=== PATIENT | male | born 1960 | race Asian ===

== ENCOUNTER → 2023-07-15 08:21 | Outpatient (REF) | payer OTHER, SELFPAY ==
[2023-07-15 09:19] LABS: Urine Albumin Negative (Neg - Trace); Urine Bilirubin Negative (Negative); Urine Character Clear (Clear); Urine Color Yellow; Urine Glucose Negative (Negative); Urine Ketone Negative (Negative); Urine Leukocyte Negative (Negative); Urine Nitrite Negative (Negative); Urine Occult Blood Negative (Negative); Urine Specific Gravity 1.015 (<1.030); Urine Urobilinogen Negative (Neg - 1+)
[2023-07-15 09:30] LABS: % Basophils 0.8 % (0-2); % Eosinophils 2.1 % (0-6); % Immature Granulocytes 0.2 % (0-0.5); % Lymphocytes 29.6 % (20.5-51.1); % Monocytes 7.1 % (1.7-9.3); % Neutrophils 60.2 % (42.2-75.2); Absolute Eosinophils 0.1 10^3/uL (0-0.7); Absolute Lymphocytes 1.5 10^3/uL (1.2-3.4); Absolute Monocytes 0.4 10^3/uL (0.1-0.6); Absolute Neutrophils 3.1 10^3/uL (1.4-6.5); Hematocrit 44.8 % (39.0-52.0); Hemoglobin 14.7 g/dL (13.0-18.0); Mean Corp Hgb Conc. 32.8 g/dL (33.0-37.0); Mean Corpuscular Hgb 30.1 pg (27.0-31.0); Mean Corpuscular Volume 91.8 fL (80.0-94.0); Nucleated Red Blood Cells % 0 % (-); Platelet Count 179 10^3/uL (130-400); Red Blood Cell Count 4.88 10^6/uL (4.70-6.10); Red Cell Dist. Width 12.4 % (11.5-14.5); White Blood Cell Count 5.2 10^3/uL (4.8-10.8)
[2023-07-15 09:55] LABS: ALT (SGPT) 36 U/L (0-50); AST (SGOT) 33 U/L (17-59); Albumin 4.3 g/dl (3.5-5.0); Alkaline Phosphatase 59 U/L (38-126); Blood Urea Nitrogen 17 mg/dl (9-20); Calcium 8.7 mg/dl (8.4-10.2); Carbon Dioxide 27 mmol/L (22-30); Chloride 106 mmol/L (98-107); Glucose 95 mg/dl (70-99); HDL Cholesterol 43 mg/dl; LDL Cholesterol, Calculated 53 mg/dl; Sodium 138 mmol/L (135-145); Total Bilirubin 0.8 mg/dl (0.2-1.3); Total Cholesterol 118 mg/dl (50-199); Total Protein 6.6 g/dl (6.3-8.2); Triglyceride 112 mg/dl (10-149); Very Low Density Lipoprotein 22 mg/dl (0-30); eGFR > 60.00
[2023-07-15 10:21] LABS: PSA, Total - Screen 1.18 ng/ml (0.0-4.0)
== END ==
LOC: REG 08:21
PROVIDERS: ATTENDING PHYSICIAN Family Medicine
DX: Z00.00 Encounter for general adult medical examination without abnormal findings (principal); E78.5 Hyperlipidemia, unspecified; N40.1 Benign prostatic hyperplasia with lower urinary tract symptoms
CPT/HCPCS: 36415; 80053; 80061; 81003; 84443; 85025; G0103

== ENCOUNTER 2023-10-03 12:47 | Inpatient (IN) | payer OTHER, SELFPAY ==
[2023-10-03] VITALS (8 sets, daily range): BP systolic 111–124; BP diastolic 69–80; BMI 26.1
--- NOTE | 2023-10-03 09:05 | ED.CVA ---
History of Present Illness
General
Chief Complaint: CVA/TIA Symptoms
Source: patient
Exam Limitations: none
Time Seen by Provider: 10/03/23 09:02
Onset of Stroke Symptoms
Onset of symptoms known: Yes
Date of onset of symptoms: 10/03/23
Date last time pt seen normal: 10/03/23
Travel History
Have you had any contact with someone who has COVID-19?: No
Do you have any symptoms of coronavirus? Fever > 100 degrees, chills, cough, shortness of breath, sore throat, loss of taste or smell, muscle aches, or headache?: No
History of Present Illness
History of Present Illness:
See MDM
Past History
Past History
ED Past Medical History: Arrthythmia, CAD, GERD and HTN
ED Past Surgical History: Cardiac and Other (Hernia repair)
Social History
Tobacco: Non-smoker
Alcohol: None
Drug: None
Personal:
Living: with family
Phy Exam
Physical Exam
Physical Exam:
See MDM
Scores
NIH Stroke Score
Level of Consciousness: 0 - Alert
LOC Questions: 0-Answers both correctly
LOC Commands: 0-Performs both correctly
Best Horizontal Gaze: 0-Normal
Visual Portillo: 1=Partial hemianopia
Facial Palsy: 0=Normal, symmetrical
Motor - Right Arm: 0=No drift 10 seconds
Motor - Left Arm: 0=No drift 10 seconds
Motor - Right Le-No drift 5 seconds
Motor - Left Le-No drift 5 seconds
Limb Ataxia: 0-Absent
Sensation: 0-Normal
Best Language: 0-No aphasia
Dysarthria: 0-Normal
Extinction and Inattention: 0-No abnormality
Total Score:: 1
Course
Orders/Labs/Results
Orders:
Orders
10/03/23 08:59
CT Head W/o Cont STROKE ALERT Urgent
Comment:
Reason For Exam: left vision loss
10/03/23 09:00
CT Head/Neck Ang STROKE ALERT Urgent
Comment:
Reason For Exam: left vision loss
10/03/23 09:03
Electrocardiogram (*1) Stat
Reason for Study: Other
Other Reason for Exam: neuro symptoms
NEUROLOGY CONSULT Urgent
Consulting Provider: Irvin Metz
Was physician already notified: Yes
EKG- Treatment ONCE
10/03/23 09:10
Complete Blood Count/With Diff Urgent
Comprehensive Metabolic Panel Urgent
PTT Urgent
Prothrombin Time Urgent
Troponin I Urgent
10/03/23 09:18
Aspirin Chewable [Low Strength Aspirin] 324 mg PO NOW STA
Clopidogrel Bisulfate [Plavix] 300 mg PO NOW STA
Abnormal Lab Results
10/03/23
09:10
MPV 10.6 H fL
(7.4-10.4)
Absolute Lymphs (auto) 1.1 L 10^3/uL
(1.2-3.4)
10/03/23 09:10
10/03/23 09:10
Vital Signs
Initial and Last Documented VS:
Initial Vital Signs
Pulse Resp BP Pulse Ox
70 16 124/75 98
10/03/23 08:53 10/03/23 08:53 10/03/23 08:53 10/03/23 08:53
Last Documented Vital Signs
Pulse Resp BP Pulse Ox
70 16 124/75 98
10/03/23 08:53 10/03/23 08:53 10/03/23 08:53 10/03/23 08:53
MDM/Problems Addressed
Differential Diagnosis Includes:
HPI and MDM Narrative:
63-year-old male presenting for evaluation of visual issues. Patient woke up around 6:50 AM. Around 7:04 AM he noticed that he was having vision issues in his left eye. Soon afterwards, he realized that it was both eyes. He denies any headache.
Patient denies being on blood thinners. He does have a history of coronary artery disease with stents and CABG. He has a prior history of smoking. He denies prior strokes. Stroke alert was called from triage and patient was brought back
immediately and met by myself and neurology.
Patient states he recently stopped Plavix 5 to 6 months ago which was a year after his last stent.
On exam, patient has left contralateral superior quadrantanopia
Physical exam
General: Well appearing and non-toxic
HEENT: protecting airway. Pupils equal reactive. EOMI. Left contralateral superior quadrantanopia
Neck: appears supple
CV: No evidence of cyanosis. Regular rate and rhythm
Resp: No accessory muscle use
Abd: Non-distended
Extremities: No deformities
Neuro: alert. No focal neurodeficits in regards to facial paralysis, speech issues, muscle strength or sensory loss. Visual deficit noted
Psych: Normal affect
Skin: Intact
Problems Addressed including Acute and Chronic Conditions affecting care:
1. left contralateral superior quadrantanopia
Acuity: acute
Prognosis: unstable
Details: Given the timing, patient is a TNK candidate. Stroke alert was called from triage. Will obtain CT angiogram
Updates
9:[address] is already showing evidence of stroke. Because of this, patient is not a TNK candidate. Will give aspirin and Plavix. at bedside also indicates that she was not 100% on the timing that was provided by the patient
Differential Diagnosis (but not limited to): Ischemic stroke, hemorrhage, complex migraine
Testing considered: MRI
Drug therapy (if applicable): OTC meds, please see d/c instruction regarding Rx drugs
Amount and/or Complexity of Data Reviewed
Clinical info obtained from: Patient
External data reviewed: N/A
Labs I independently reviewed (but not limited to): Electrolytes within normal limits
Radiology: The CT scan was personally and independently reviewed. In addition, official CT report reviewed.
Pulse Ox: not hypoxic
EKG independently reviewed: Sinus rhythm, inferior Q waves, no STEMI
Braid Folder: Sinus rhythm
Critical Care: N/A
Risk of Complication:
Social Determinants of health: Good social support
Discussed with other providers: Hospitalist, neurologist
Escalation of Care includes Admit/Obs: Given the subacute stroke, will admit for further workup
Occasional wrong word or 'sound a like' substitutions may have occurred due to the inherent limitations of voice recognition software. Read the chart carefully and recognize, using context, where substitutions have occurred.
*Critical Care Note
Total Time (30-74mins, 75-104mins- exclusive of procedures): Not Applicable
ED Attending Note
-
Portions of this chart may have been created with voice recognition software.� Occasional wrong word or��sound alike� substitutions may have occurred due to the inherent limitations of voice recognition software.
Discharge Plan
Departure
Patient Disposition: Admit
Date of Disposition: 10/03/23
Time of Disposition: 09:46
Admit to: Med/Surg
Presentation/result/management discussed w/ accepting /: Hospitalist
Discharge Problem:
Acute CVA (cerebrovascular accident)
Prescriptions:
No Action
atorvastatin [Lipitor] 10 mg Tablet
10 mg PO DAILY
aspirin 81 mg Tablet,Delayed Release (Dr/Ec)
81 mg PO DAILY
losartan 25 mg Tablet
25 mg PO DAILY
metoprolol succinate [Toprol XL] 25 mg Tablet Extended Release 24 Hr
12.5 mg PO QPM
coenzyme Q10 [CoQ-10] 100 mg Capsule
100 mg PO DAILY
Referrals:
Jose Tompkins DO [Family Provider] -
Interventions
Interventions:
ED- Fall Risk Assessment Last Done: 10/03/23 09:30
*ED COVID-19 Vaccine History Last Done: 10/03/23 08:53
ED- Pulmonary Assessment Last Done: 10/03/23 09:30
ED- Neurological Assessment Last Done: 10/03/23 09:09
ED- Cardiac Assessment Last Done: 10/03/23 09:30
ED Swallowing Screen Last Done: 10/03/23 09:30
Discharge Date and Time
Print Language: LAO
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
[2023-10-03 09:20] LABS: % Basophils 0.6 % (0-2); % Eosinophils 1.5 % (0-6); % Immature Granulocytes 0.4 % (0-0.5); % Lymphocytes 20.6 % (20.5-51.1); % Monocytes 7.5 % (1.7-9.3); % Neutrophils 69.4 % (42.2-75.2); Absolute Eosinophils 0.1 10^3/uL (0-0.7); Absolute Lymphocytes 1.1 10^3/uL (1.2-3.4); Absolute Monocytes 0.4 10^3/uL (0.1-0.6); Absolute Neutrophils 3.6 10^3/uL (1.4-6.5); Hematocrit 46.1 % (39.0-52.0); Hemoglobin 15.4 g/dL (13.0-18.0); Mean Corp Hgb Conc. 33.4 g/dL (33.0-37.0); Mean Corpuscular Hgb 30.8 pg (27.0-31.0); Mean Corpuscular Volume 92.2 fL (80.0-94.0); Mean Platelet Volume 10.6 fL (7.4-10.4); Nucleated Red Blood Cells % 0 % (-); Platelet Count 173 10^3/uL (130-400); Red Cell Dist. Width 12.6 % (11.5-14.5); White Blood Cell Count 5.2 10^3/uL (4.8-10.8)
[2023-10-03] MEDS: LOW STRENGTH ASPIRIN 324 MG PO (09:36)
[2023-10-03] MEDS: PLAVIX 300 MG PO (09:36)
[2023-10-03 09:38] LABS: APTT 32.6 Sec (23.4-35.0); PT 13.2 Sec (11.4-14.6)
[2023-10-03 09:41] LABS: ALT (SGPT) 33 U/L (0-50); AST (SGOT) 32 U/L (17-59); Albumin 4.7 g/dl (3.5-5.0); Alkaline Phosphatase 66 U/L (38-126); Blood Urea Nitrogen 15 mg/dl (9-20); Calcium 9.2 mg/dl (8.4-10.2); Carbon Dioxide 28 mmol/L (22-30); Chloride 104 mmol/L (98-107); Glucose 94 mg/dl (70-99); Sodium 140 mmol/L (135-145); Total Bilirubin 0.7 mg/dl (0.2-1.3); Total Protein 7.1 g/dl (6.3-8.2); eGFR > 60.00
[2023-10-03 10:00] LABS: Troponin I < 0.012 ng/ml
[2023-10-03 10:58] LABS: HDL Cholesterol 49 mg/dl; LDL Cholesterol, Calculated 64 mg/dl; Total Cholesterol 142 mg/dl (50-199); Triglyceride 149 mg/dl (10-149); Very Low Density Lipoprotein 29 mg/dl (0-30)
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
--- NOTE | 2023-10-03 12:36 | CON.CAR ---
Addendum entered and electronically signed by Sd Sheehan MD 10/03/23 15:05:
Patient seen and examined in collaboration with SILK BRUSHER; agree with below.
-63-year-old male with coronary artery disease status-post CABG (2018) with brief postoperative paroxysmal atrial fibrillation, subsequent coronary stenting (03/2022), chronic HFmrEF/ICM (initial EF 35%, improved to 45%), and hyperlipidemia admitted
with abnormal vision; found to have a right occipital lobe infarct.
-There is a relatively high likelihood that the patient had recurrent paroxysmal atrial fibrillation as a cause for his infarct; therefore, recommend placing patient on systemic anticoagulation (Eliquis 5 mg twice daily) when cleared by Neurology.
-The patient's transthoracic echocardiogram today is essentially unchanged compared to previous last year.
-No further cardiac recommendations at this time; the patient can follow-up with his primary Expert Witness as an outpatient to determine whether patient really needs to undergo an ILR to officially prove that atrial fibrillation has recurred.
Original Note:
Consultation
Consultation Request
Date/Time Consultation Requested: 10/03/23 1208
Date/Time Consultation Performed: 10/03/23 1245
Requesting Provider: Dr. Pascal
Performing Provider: Diana BLOOM for Dr. Sheehan
Reason for Consultation: Stroke
Medical History
-
Chief Complaint: visual abnormalities
History of Present Illness:
63 y/o male with CAD s/p CABG with brief post-op AFIB (2019), ICM EF 35%, but improved to 45%), followed by coronary stenting 03/2022, and HLD who is here because this AM he noted his vision was abnormal. He is seen to have right occipital lobe
infarct. We are consulted to consider implantable loop recorder placement. He is a former Dr. Trevino patient, and will see Dr. Hawley next month.
Past Medical History
Past Medical History: Arrhythmias, CAD, Hypercholesterolemia and Other (ICM as noted)
Social History
Tobacco: Non-Smoker
Family History
Family History: Reviewed & Not Pertinent
Allergies / Home Medications
Allergy/AdvReac Type Severity Reaction Status Date / Time
tea tree Allergy Intermediate Hives Verified 04/03/22 12:12
black pepper Allergy Mild cough Verified 04/03/22 12:12
pollen extracts Allergy Mild SNEEZE,COUGH,TEARING,RUNNY Verified 04/03/22 12:12
NOSE
�Medication �Instructions �Recorded �Confirmed �Type
aspirin 81 mg tablet,delayed 81 mg PO DAILY 10/03/23 10/03/23 History
release
atorvastatin 10 mg tablet (Lipitor) 10 mg PO DAILY 10/03/23 10/03/23 History
coenzyme Q10 100 mg capsule 100 mg PO DAILY 10/03/23 10/03/23 History
(CoQ-10)
losartan 25 mg tablet 25 mg PO DAILY 10/03/23 10/03/23 History
metoprolol succinate 25 mg 12.5 mg PO QPM 10/03/23 10/03/23 History
tablet,extended release 24 hr
(Toprol XL)
Review of Systems
-
History Source: Patient
All other systems: Negative unless noted
Neurological: Other (vision changes)
Physical Exam
Vital Signs
Pulse Resp BP Pulse Ox
64 19 111/80 92
10/03/23 10:15 10/03/23 10:15 10/03/23 10:00 10/03/23 10:15
Lab Results
10/03/23 09:10
10/03/23 09:10
Troponin I < 0.012 ng/ml 10/03/23 09:10
Physical Exam
General: Well Developed, Well Nourished and No Apparent Distress
HEENT: Normocephalic and Anicteric
Respiratory: Clear and Non Labored Respirations
Cardiac: Regular Rhythm
Musculoskeletal: No Edema
Skin: Warm and Dry
Neuro: AO x 3
Psych: Calm
Impression / Plan
-
Right occipital lobe infarct:
-this diagnosis is threat to bodily function
-visual symptoms may be improving per patient
-neuro following
-on ASA, plavix, statin currently
-we were asked to evaluate for implantable loop recorder to assess for AFIB. However, patient had brief post-op AFIB after CABG 2018, so once okay with neuro, would transition to Eliquis 5 mg PO BID.
-echo pending
CAD s/p CABG 2018 and stenting 2021:
-stable without angina
-on ASA, statin, BB as OP
ICM:
-EF 45% on last check- echo to be updated here
-on BB/ARB- held for permissive HTN post stroke
-volume status stable
Data Reviewed
-
EKG: Tracing Personally Visualized and interpreted (NSR 61 BPM)
Radiology: Report Reviewed by me (head CT: Findings consistent with a moderate subacute right occipital lobe infarct.)
MRI: Report Reviewed by me (Large nonhemorrhagic acute/subacute medial right occipital lobe infarct.)
Medical Tests (Nuc Med, Echo etc): Report Reviewed by me (10/11/22: Mildly reduced left ventricular systolic function. Left ventricular ejection fraction is 45% by Pascal's method of discs. Mild inferior hypokinesis. Stage I diastolic dysfunction
suggestive of abnormal relaxation. Aortic sclerosis without stenosis.)
Labs: Labs Reviewed by me
[2023-10-03 13:14] LABS: Glycohemoglobin (HgbA1c) 5.4 % (4.0-5.6)
--- NOTE | 2023-10-03 15:03 | PTCARENOTE ---
pt admitted from ED AOx3 denies pain. LCTA B/L on RA, abd soft, NT cont b&B. skin CDI, +PP no edema
[2023-10-03] MEDS: TYLENOL 650 MG PO (19:41)
[2023-10-04] VITALS (8 sets, daily range): BP systolic 102–121; BP diastolic 66–78; PULSE 91–94; O2SAT 98; BMI 25.7
[2023-10-04] MEDS: TYLENOL 650 MG PO (03:25)
[2023-10-04 07:01] LABS: Hematocrit 45.7 % (39.0-52.0); Hemoglobin 15.5 g/dL (13.0-18.0); Mean Corp Hgb Conc. 33.9 g/dL (33.0-37.0); Mean Corpuscular Volume 91.4 fL (80.0-94.0); Mean Platelet Volume 10.8 fL (7.4-10.4); Platelet Count 189 10^3/uL (130-400); Red Cell Dist. Width 12.3 % (11.5-14.5); White Blood Cell Count 6.9 10^3/uL (4.8-10.8)
[2023-10-04 07:29] LABS: Blood Urea Nitrogen 12 mg/dl (9-20); Calcium 9.3 mg/dl (8.4-10.2); Carbon Dioxide 20 mmol/L (22-30); Chloride 107 mmol/L (98-107); Estimated Creatinine Clearance > 125 ml/min; Glucose 124 mg/dl (70-99); Potassium 3.9 mmol/L (3.5-5.1); Sodium 138 mmol/L (135-145); eGFR > 60.00
--- NOTE | 2023-10-04 08:01 | W.PN.NEURO.1 ---
Addendum entered and electronically signed by Irvin Metz MD 10/04/23 13:34:
I saw and evaluate the patient reviewed note by Mai Freed agree with the findings the following comments:
63-year-old male with a past medical history of coronary artery disease with CABG, coronary stent, hypertension, cardiomyopathy with decreased ejection fraction presenting the hospital with acute left-sided visual field vision change noted shortly
after awakening yesterday morning. CT head showed an already developed right occipital lobe infarction so he was not candidate for acute thrombolytic therapy and no LVO so not an IAT candidate.
He does have a headache but no nausea or vomiting no speech difficulty or unilateral weakness.
Neurologic examination is unchanged there is a visual field defect most prominently in the left superior quadrant of vision otherwise cranial nerves motor function coordination and mental status are normal.
MRI brain with the expected infarct in the right occipital lobe posterior cerebral artery territory.
Transthoracic echocardiogram unchanged from previous study there is left atrial dilation.
Patient had had brief postoperative atrial fibrillation in the past.
Assessment: Embolic stroke to the right occipital lobe producing left superior quadrant tropia, highly likely to be cardioembolic stroke given absence of significant large vessel atherosclerosis in the vertebral or basilar arteries on CTA of the
head and neck, along with left atrial dilation history of coronary artery disease and previous instance of postoperative atrial fibrillation.
Recommendations
-Patient understands should not drive if for the time being in my office will report to [facility], also should not operate heavy machinery including lawnmowers
-He will need outpatient ophthalmology follow-up for assessing formal visual portillo and following this over time
-Agree with starting anticoagulation given highly likely this is a cardioembolic stroke and patient would be best served by anticoagulation for further stroke protection in the future
-Start anticoagulation on 10/05 and stop clopidogrel at that time
-Goal normotension
-Neurologic checks and at stroke scales
-Reasonable to discuss the option of implanted groundwater monitoring technician as an outpatient, would not change medical decision making that I think the patient needs to be on long-term anticoagulation for cardioembolic stroke protection
-Neurology follow up outpatient 4-6 weeks
-Tyenol for next 2-3 days as main therapy for headache which is due to the stroke, headache very common with this type of stroke, no other new neurologic symptoms is reassuring
Original Note:
Documented by User: Mai Hoyos NP 10/04/23 12:21
Today's Communication / Plan
-
.
Neuro Assessment/Plan
Assessment
63-year-old male with a past medical history of coronary artery disease status post stent and CABG, hypertension, cardiomyopathy with decreased ejection fraction who presents to the hospital with acute onset of painless bilateral vision change that
he noticed shortly after awakening this morning. Patient felt normal last night with no unusual headache neurologic symptoms or vision changes. A couple of minutes after awakening just before 7:00 this morning patient noticed that he had abnormal
vision seem to be in the left hemifield in both eyes. No headache, speech difficulty unilateral weakness or paresthesia or loss of consciousness chest pain or dyspnea. He has no history of TIA or stroke or any similar visual events. He had
cardiac stent placed around March 2022 and had 1 year of DAPT and came off of clopidogrel around March 2023 he has been compliant with aspirin 81 mg daily.
-CT head noncontrast with acute right occipital lobe infarct
-CTA of the head and neck shows no significant carotid or vertebral artery or basilar artery stenosis no intracranial occlusions that I can appreciate of the right FACILITY REHAB DIRECTOR. CTA also showed possible mass in right upper lobe.
-MRI brain with a moderate size ischemic infarct of the occipital lobe and the posterior cerebral artery territory without hemorrhage.
-TTE 10/03/23: EF 45%. Mild left atrium dilation.
I. Acute right occipital ischemic stroke producing left-sided vision loss. Etiology concerning for cardioembolic source.
II. Possible RUL pulmonary mass vs parenchymal scarring vs pneumonia.
Plan
-Initiating OAC with Eliquis 5mg BID per Cardiology recommendation. Okay to initiate OAC on 10/06/23.
-Continue DAPT with aspirin 81mg and Plavix 75mg today and tomorrow, then discontinue both on 10/06/23 when OAC is initiated, unless otherwise directed by Cardiology due to cardiac stent.
-Prochlorperazine 5mg IV x1 now for headache. May continue this PRN headache and provide PO script on discharge if this is effective. Discussed with patient that he may have a headache for several weeks. If headache becomes severe or drastically
worsens he is to come to the ER immediately due to concern of intracranial hemorrhage.
-Continue Tylenol PRN headache.
-Goal normotension.
-Monitor on telemetry.
-LDL goal <70. LDL is 64. Okay to continue home atorvastatin 10mg daily as LDL is at goal.
-Goal normoglycemia, hbA1c is 5.4.
-NIHSS and neurological checks per unit guidelines.
-Provide patient/family with a stroke education packet.
-PT/OT evaluations.
-DVT prophylaxis.
-Follow-up RUL pulmonary mass per primary team.
-No driving. Patient will need outpatient evaluation by ophthalmology and eventual driving clearance from them as well as OT driving screening.
-Follow-up with Neurology as an outpatient, may see the GREETER or one of the physicians.
Subjective/Objective
Subjective Data
Date of Service: October 04, 2023
No acute events overnight. Patient reports ongoing LUQ vision deficit and posterior headache. Tylenol hasn't been improving his headache, he rates it a 5/10 currently. He denies any dizziness, speech/swallow difficulty, numbness, weakness, chest
pain, palpitations, and shortness of breath.
Objective Data
Vital Signs
Temp Pulse Resp BP Pulse Ox
98 F 71 19 111/72 94
10/04/23 06:55 10/04/23 06:55 10/04/23 06:55 10/04/23 06:55 10/04/23 06:55
Lab Results
10/04/23 05:52
10/04/23 05:52
PT 13.2 Sec (11.4-14.6) 10/03/23 09:10
INR 1.00 10/03/23 09:10
APTT 32.6 Sec (23.4-35.0) 10/03/23 09:10
Sodium 138 mmol/L (135-145) 10/04/23 05:52
Potassium 3.9 mmol/L (3.5-5.1) 10/04/23 05:52
BUN 12 mg/dl (9-20) 10/04/23 05:52
Glucose 124 mg/dl (70-99) H 10/04/23 05:52
Calcium 9.3 mg/dl (8.4-10.2) 10/04/23 05:52
LDL Cholesterol, Calc 64 mg/dl 10/03/23 09:10
Patient Allergies
tea tree Allergy (Intermediate, Verified 04/03/22 12:12)
Hives
black pepper Allergy (Mild, Verified 04/03/22 12:12)
cough
pollen extracts Allergy (Mild, Verified 04/03/22 12:12)
SNEEZE,COUGH,TEARING,RUNNY NOSE
LDL Level: <70, continue statin
Review of Systems
-
History Source: Patient
EENT: Decreased Vision; Negative Blurry Vision or Swallowing Difficulty
Respiratory: Negative Cough or Trouble Breathing
Cardiac: Negative Chest Pain or Palpitations
Abdomen/GI: Negative Nausea
Neuro: Headache; Negative Dizzy, Weakness, Numbness, Ataxia, Tremors or Speech Problem
Physical Exam
-
General: Well Developed, Well Nourished and No Apparent Distress
Eyes: No Ptosis and PERRLA
HEENT: Normocephalic and Atraumatic
Neck: Full Range of Motion
Respiratory: No Dyspnea
GI: Non-distended
Extremities: No Clubbing, No Cyanosis and No Edema
Psych: Unremarkable
Extended Neurological Exam
Mood & Affect: Mood Unremarkable and Affect Unremarkable
Attention Span & Concentration: Awake, Alert and Interactive
Memory: Unremarkable (AAOx3) and Able to Recall
Tremor: Hand Tremor Absent and Head Tremor Absent
Involuntary Movement: None
Speech: Quality Unremarkable, Quantity Unremarkable and Rate of Production Unremarkable
Cranial Nerve II: Left Eye: Pupillary Reactivity Unremarkable, Pupillary Size Unremarkable and Visual Portillo Reduced (LUQ field cut)
Cranial Nerve II: Right Eye: Pupillary Reactivity Unremarkable, Pupillary Size Unremarkable and Visual Portillo Reduced (LUQ field cut)
Cranial Nerves III, IV, : Extraocular Movement: Extraocular Movement Full in all Directions
Cranial Nerve V: Facial Sensation: Intact to Light Touch
Cranial Nerve VII: Facial Symmetry: Normal Facial Symmetry
Cranial Nerve VIII: Hearing: Unremarkable Hearing to Normal Conversational Volume
Cranial Nerves IX, X: Palate Movement: Palate Elevation Symmetric
Cranial Nerve XI: Shoulder Shrug: Unremarkable
Cranial Nerve XII: Tongue Protusion: Midline
Muscle Strength, Overall: Full Throughout
Muscle Bulk & Tone: Bulk Unremarkable and Tone Unremarkable
Pronator Drift: No Drift in Upper Extremities and No Drift in Lower Extremities
Touch Sensation: Double Simultaneous Stimulation Unremarkable
Coordination: [id number] Testing Unremarkable
Babinski Sign: Absent Bilaterally
Modified [place] Score (MRS)
-
Modified Gibson Scale (mRS): Slight disability. Able to look after own affairs.
Score: 2
Data Reviewed
-
CT-A: Report Reviewed and Image Reviewed
CT Head: Report Reviewed and Image Reviewed
MRI Head: Report Reviewed and Image Reviewed
Labs: Report Reviewed
Lipid Profile: Report Reviewed
HgbA1C: Report Reviewed
Reviewed with: Physician and Patient
Medications
-
Active Medications
Generic Name Dose Route Start Last Admin
Trade Name Freq PRN Reason Stop Dose Admin
Acetaminophen 650 mg 10/03/23 12:53 10/04/23 03:25
Acetaminophen 325 Mg Tablet PO 10/31/23 12:52 650 mg
Q4HPRN PRN Administration
LU, mild pain, or temp >100.4F
Aspirin 81 mg 10/04/23 08:00 06/07/24 08:48
Aspirin 81 Mg (Enteric Coated) Tablet PO 11/01/23 07:59 81 mg
DAILY JUAN MIGUEL Administration
Atorvastatin Calcium 10 mg 10/04/23 08:00 10/04/23 08:47
Atorvastatin (Lipitor) 10 Mg Tablet PO 11/01/23 07:59 10 mg
DAILY JUAN MIGUEL Administration
Bisacodyl 10 mg 10/03/23 12:53
Bisacodyl 10 Mg Rectal Suppository RECTAL 10/31/23 12:52
[id number] PRN
constipation
Clopidogrel Bisulfate 75 mg 10/04/23 08:00 10/04/23 08:48
Clopidogrel 75 Mg Tablet PO 11/01/23 07:59 75 mg
DAILY JUAN MIGUEL Administration
Ondansetron HCl 4 mg 10/03/23 12:53
Ondansetron 4 Mg/2 Ml Vial IV 10/31/23 12:52
Q6HPRN PRN
nausea and vomiting
Polyethylene Glycol 17 grams 10/03/23 12:53
Polyethylene Glycol Powder 17 Grams Packet PO 10/31/23 12:52
DAILYPRN PRN
constipation
Senna/Docusate Sodium 1 tablet 10/03/23 12:53
Docusate W/Senna (Merle-Colace) Tablet PO 10/31/23 12:52
BIDPRN PRN
constipation
Sodium Chloride 0 flush 10/04/23 09:00
Sodium Chloride 0.9% (Flush) Syringe IV 11/01/23 08:59
PER PROTOCOL JUAN MIGUEL
Home Medications
�Medication �Instructions �Recorded
aspirin 81 mg tablet,delayed 81 mg PO DAILY Blood Clot 10/03/23
release Prevention/Tx
atorvastatin 10 mg tablet (Lipitor) 10 mg PO DAILY High Cholesterol 10/03/23
coenzyme Q10 100 mg capsule 100 mg PO DAILY Supplement 10/03/23
(CoQ-10)
losartan 25 mg tablet 25 mg PO DAILY Blood Pressure 10/03/23
metoprolol succinate 25 mg 12.5 mg PO QPM Blood Pressure 10/03/23
tablet,extended release 24 hr
(Toprol XL)
NIH Stroke Score
Subsequent NIH Scale
Date of Subsequent NIH Scale: 10/04/23
Time of Subsequent NIH Scale: 08:45
NIH Stroke Score
Level of Consciousness: 0 - Alert
LOC Questions: 0-Answers both correctly
LOC Commands: 0-Performs both correctly
Best Horizontal Gaze: 0-Normal
Visual Portillo: 1=Partial hemianopia
Facial Palsy: 0=Normal, symmetrical
Motor - Right Arm: 0=No drift 10 seconds
Motor - Left Arm: 0=No drift 10 seconds
Motor - Right Le-No drift 5 seconds
Motor - Left Le-No drift 5 seconds
Limb Ataxia: 0-Absent
Sensation: 0-Normal
Best Language: 0-No aphasia
Dysarthria: 0-Normal
Extinction and Inattention: 0-No abnormality
Total Score:: 1
Modified [place] (mRS) Score
Modified [place] Scale (mRS): Slight disability. Able to look after own affairs.
Score: 2

Documented by User: Irvin Metz MD 10/04/23 13:28
Modified Gibson Score (MRS)
-
Score: 2
NIH Stroke Score
NIH Stroke Score
Total Score:: 1
Modified [place] (mRS) Score
Score: 2
[2023-10-04] MEDS: LIPITOR 10 MG PO (08:47)
[2023-10-04] MEDS: PLAVIX 75 MG PO (08:48)
[2023-10-04] MEDS: COMPAZINE 5 MG IV (08:48)
[2023-10-04] MEDS: ASPIR LOW (ENTERIC COATED) 81 MG PO (08:48)
--- NOTE | 2023-10-04 11:09 | PTOTSP ---
PATIENT ABLE TO FUNCTION INDEPENDENTLY ON LEVEL SURFACES WELL ELEVATIONS REQUIRING NO FURTHER ACUTE CARE SKILLED P.T. AT THIS TIME. O.T. RECOMMENDING OUTPATIENT O.T. FOR VISION LOSS. WILL DISCHARGE FROM P.T. SERVICES.
--- NOTE | 2023-10-04 12:46 | CM ---
Addendum entered by Roya Valerio 10/04/23 15:27:
CM consult - Ross check for Eliquis 5mg po BID
Called pts pharm [facility]
Per pharm staff pts co-pay would be $40/30 day supply
Addendum entered by Roya Valerio 10/04/23 13:18:
CM consult - Advance Directive
Pt given Advance Directive Information
Original Note:
Met with pt and his at bedside
Pt lives with his in a 2 story home
Independent, works FT, driving prior to admission
DME - CPAP
SNF/HH - denies past hx. Has had cardiac rehab in past
Has ride at d/c
PCP - Dr Avinash Tompkins
OT recommending outpatient OT - will need Rx at d/c
Plan - anticipate home with outpatient OT
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
[2023-10-04] MEDS: TYLENOL 1000 MG PO ×2 (16:22→22:06)
[2023-10-04] MEDS: TOPROL XL 12.5 MG PO (18:21)
[2023-10-05 02:36] VITALS: BP 116/72
[2023-10-05 06:00] VITALS: BMI 25.8
[2023-10-05 07:41] VITALS: BP 114/71
[2023-10-05] MEDS: ASPIR LOW (ENTERIC COATED) 81 MG PO (08:23)
[2023-10-05] MEDS: LIPITOR 10 MG PO (08:24)
[2023-10-05] MEDS: PLAVIX 75 MG PO (08:24)
[2023-10-05] MEDS: TYLENOL 1000 MG PO (08:24)
--- NOTE | 2023-10-05 09:39 | CM ---
CM met with pt and spouse at bedside and provided a $10 co pay card for [employer]. All questions answered.
[2023-10-05 10:58] VITALS: BP 113/65
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
--- NOTE | 2023-10-05 12:39 | W.DS.TRANS ---
DC Summary - Groundskeeper Supervisor
-
Discharge Instructions:
Discharge Diagnosis/Procedures occiptal stroke, headache, lung mass
Diet Low Cholesterol
Activity As tolerated
Driving Restrictions No driving
Bathing Restrictions None
Other Services OT
Instructions:
Stand-Alone Forms:
Changes to Home Medications: Yes
Discharge Medications:
DC Medications w/original date entered in [employer]
aspirin 81 mg tablet,delayed release 81 mg PO DAILY Blood Clot Prevention/Tx 10/03/23
atorvastatin 10 mg tablet (Lipitor) 10 mg PO DAILY High Cholesterol 10/03/23
coenzyme Q10 100 mg capsule (CoQ-10) 100 mg PO DAILY Supplement 10/03/23
metoprolol succinate 25 mg tablet,extended release 24 hr (Toprol XL) 12.5 mg PO QPM Blood Pressure 10/03/23
acetaminophen 500 mg tablet (Tylenol Extra Strength) 1,000 mg (2 x 500 mg) PO TID #30 tabs 10/04/23
apixaban 5 mg tablet (Eliquis) 5 mg PO BID #60 tabs 10/04/23
prochlorperazine maleate 5 mg tablet (Compazine) 5 mg PO QID PRN nausea and vomiting #30 tabs 10/04/23
Home Medication Changes
Losartan stopped
Pending Results: No
Total time spent discharging patient (in min): 42
== END 2023-10-05 14:30 | disposition home or self-care (01) | DRG 65 ==
LOC: 3 WEST ACU 12:47
PROVIDERS: ADMITTING PHYSICIAN Internal Medicine; CONSULT PHYSICIAN Internal Medicine; CONSULT PHYSICIAN Student in an Organized Health Care Education/Training Program; EMERGENCY PHYSICIAN Student in an Organized Health Care Education/Training Program; FAMILY PHYSICIAN Family Medicine
DX: I63.9 Cerebral infarction, unspecified (principal); I50.22 Chronic systolic (congestive) heart failure; I11.0 Hypertensive heart disease with heart failure; K76.0 Fatty (change of) liver, not elsewhere classified; E78.00 Pure hypercholesterolemia, unspecified; I48.0 Paroxysmal atrial fibrillation; F41.9 Anxiety disorder, unspecified; G47.33 Obstructive sleep apnea (adult) (pediatric); G89.29 Other chronic pain; H53.40 Unspecified visual field defects; H54.62 Unqualified visual loss, left eye, normal vision right eye; I25.10 Atherosclerotic heart disease of native coronary artery without angina pectoris; I25.5 Ischemic cardiomyopathy; I25.2 Old myocardial infarction; K21.9 Gastro-esophageal reflux disease without esophagitis; M54.2 Cervicalgia; M54.9 Dorsalgia, unspecified; R91.8 Other nonspecific abnormal finding of lung field; Z79.82 Long term (current) use of aspirin; Z79.899 Other long term (current) drug therapy; Z95.5 Presence of coronary angioplasty implant and graft; Z95.1 Presence of aortocoronary bypass graft; Z87.891 Personal history of nicotine dependence; Z87.19 Personal history of other diseases of the digestive system
CPT/HCPCS: 70450; 70496; 70498; 70551; 71250; 80048; 80053; 80061; 83036; 84484; 85025; 85027; 85610; 85730; 92523; 93005; 93306; 97162; 97166; 99285; Q9967

== ENCOUNTER → 2024-02-19 11:12 | Outpatient (REF) | payer OTHER, SELFPAY ==
[2024-02-20 19:22] LABS: Rubella Positive
[2024-02-21 16:44] LABS: Quantiferon Mitogen minus NIL 9.95 IU/mL; Quantiferon NIL 0.05 IU/mL; Quantiferon Plus TB1 minus NIL 0.01 IU/mL (<=0.34); Quantiferon TB Gold Plus Negative (Negative)
== END ==
LOC: OHS 11:12
PROVIDERS: ATTENDING PHYSICIAN Nurse Practitioner Family
DX: Z23 Encounter for immunization (principal)
CPT/HCPCS: 36415; 86480; 86735; 86762; 86765; 86787

== ENCOUNTER → 2024-07-31 08:16 | Outpatient (REF) | payer OTHER, MEDICARE, SELFPAY ==
[2024-07-31 09:17] LABS: % Basophils 0.6 % (0-2); % Eosinophils 1.3 % (0-6); % Immature Granulocytes 0.2 % (0-0.5); % Lymphocytes 27.6 % (20.5-51.1); % Monocytes 6.5 % (1.7-9.3); % Neutrophils 63.8 % (42.2-75.2); Absolute Eosinophils 0.1 10^3/uL (0-0.7); Absolute Lymphocytes 1.3 10^3/uL (1.2-3.4); Absolute Monocytes 0.3 10^3/uL (0.1-0.6); Absolute Neutrophils 3.1 10^3/uL (1.4-6.5); Hematocrit 47.3 % (39.0-52.0); Hemoglobin 15.9 g/dL (13.0-18.0); Mean Corp Hgb Conc. 33.6 g/dL (33.0-37.0); Mean Corpuscular Hgb 30.5 pg (27.0-31.0); Mean Corpuscular Volume 90.6 fL (80.0-94.0); Mean Platelet Volume 10.7 fL (7.4-10.4); Nucleated Red Blood Cells % 0 % (-); Platelet Count 191 10^3/uL (130-400); Red Blood Cell Count 5.22 10^6/uL (4.70-6.10); Red Cell Dist. Width 12.4 % (11.5-14.5); White Blood Cell Count 4.8 10^3/uL (4.8-10.8)
[2024-07-31 09:51] LABS: Urine Albumin Negative (Neg - Trace); Urine Bilirubin Negative (Negative); Urine Character Clear (Clear); Urine Color Yellow; Urine Glucose Negative (Negative); Urine Ketone Negative (Negative); Urine Leukocyte Negative (Negative); Urine Nitrite Negative (Negative); Urine Occult Blood Negative (Negative); Urine Urobilinogen Negative (Neg - 1+)
[2024-07-31 10:00] LABS: ALT (SGPT) 34 U/L (0-50); AST (SGOT) 29 U/L (17-59); Albumin 4.3 g/dl (3.5-5.0); Alkaline Phosphatase 57 U/L (38-126); Blood Urea Nitrogen 14 mg/dl (9-20); Calcium 9.5 mg/dl (8.4-10.2); Carbon Dioxide 30 mmol/L (22-30); Chloride 105 mmol/L (98-107); Glucose 93 mg/dl (70-99); HDL Cholesterol 44 mg/dl; LDL Cholesterol, Calculated 61 mg/dl; Potassium 4.4 mmol/L (3.5-5.1); Sodium 143 mmol/L (135-145); Total Cholesterol 122 mg/dl (50-199); Total Protein 6.6 g/dl (6.3-8.2); Triglyceride 86 mg/dl (10-149); Very Low Density Lipoprotein 17 mg/dl (0-30); eGFR > 60.00
[2024-07-31 10:25] LABS: PSA, Total - Screen 1.19 ng/ml (0.0-4.0); TSH 1.41 uIU/ml (0.47-4.68)
== END ==
LOC: REG 08:16
PROVIDERS: ATTENDING PHYSICIAN Family Medicine
DX: Z00.00 Encounter for general adult medical examination without abnormal findings (principal); I25.10 Atherosclerotic heart disease of native coronary artery without angina pectoris; I25.2 Old myocardial infarction; Z95.1 Presence of aortocoronary bypass graft; I69.398 Other sequelae of cerebral infarction; H53.9 Unspecified visual disturbance; E78.5 Hyperlipidemia, unspecified; I50.22 Chronic systolic (congestive) heart failure; I25.5 Ischemic cardiomyopathy; G47.33 Obstructive sleep apnea (adult) (pediatric); Z99.89 Dependence on other enabling machines and devices; R13.10 Dysphagia, unspecified; Z23 Encounter for immunization; Z13.39 Encounter for screening examination for other mental health and behavioral disorders; Z13.31 Encounter for screening for depression; Z71.89 Other specified counseling; R91.8 Other nonspecific abnormal finding of lung field
CPT/HCPCS: 36415; 80053; 80061; 81003; 84443; 85025; G0103

== ENCOUNTER → 2024-10-13 06:59 | Outpatient (REF) | payer MEDICARE, OTHER, SELFPAY | LOC: RAD 06:59 | PROVIDERS: ATTENDING PHYSICIAN Internal Medicine Critical Care Medicine; FAMILY PHYSICIAN Family Medicine | DX: R91.8 Other nonspecific abnormal finding of lung field (principal) | CPT/HCPCS: 71250 ==

== ENCOUNTER → 2025-01-28 08:48 | Outpatient (REF) | payer MEDICARE, OTHER, SELFPAY ==
[2025-01-28 10:01] LABS: Hematocrit 47.9 % (39.0-52.0); Hemoglobin 16.0 g/dL (13.0-18.0); Mean Corp Hgb Conc. 33.4 g/dL (33.0-37.0); Mean Corpuscular Volume 91.8 fL (80.0-94.0); Nucleated Red Blood Cells % 0 % (-); Platelet Count 163 10^3/uL (130-400); Red Cell Dist. Width 12.5 % (11.5-14.5)
[2025-01-28 11:29] LABS: Vitamin D, 25-OH*** 51.7 ng/mL (30-80)
[2025-01-28 11:34] LABS: ALT (SGPT) 28 U/L (0-50); AST (SGOT) 26 U/L (17-59); Albumin 4.7 g/dl (3.5-5.0); Alkaline Phosphatase 52 U/L (38-126); Blood Urea Nitrogen 13 mg/dl (9-20); Calcium 9.2 mg/dl (8.4-10.2); Carbon Dioxide 27 mmol/L (22-30); Chloride 106 mmol/L (98-107); Glucose 93 mg/dl (70-99); HDL Cholesterol 52 mg/dl; LDL Cholesterol, Calculated 91 mg/dl; Potassium 4.8 mmol/L (3.5-5.1); Sodium 139 mmol/L (135-145); Total Protein 7.2 g/dl (6.3-8.2); Very Low Density Lipoprotein 19 mg/dl (0-30); eGFR > 60.00
== END ==
LOC: REG 08:48
PROVIDERS: ATTENDING PHYSICIAN Family Medicine
DX: R53.83 Other fatigue (principal); M25.50 Pain in unspecified joint; E78.5 Hyperlipidemia, unspecified; I50.22 Chronic systolic (congestive) heart failure; E55.9 Vitamin D deficiency, unspecified
CPT/HCPCS: 36415; 80053; 80061; 82306; 84403; 85025

== ENCOUNTER → 2025-03-16 10:16 | Outpatient (REF) | payer MEDICARE, OTHER, SELFPAY | LOC: RCS 10:16 | PROVIDERS: ATTENDING PHYSICIAN Internal Medicine Cardiovascular Disease; FAMILY PHYSICIAN Family Medicine | DX: I50.22 Chronic systolic (congestive) heart failure (principal) | CPT/HCPCS: 93306 ==